=== PATIENT | female | born 1970 | race Caucasian/White ===

== ENCOUNTER → 2023-11-20 17:33 | Outpatient (REF) | payer OTHER, SELFPAY | LOC: MRI 17:33 | PROVIDERS: ATTENDING PHYSICIAN Nurse Practitioner Adult Health | DX: G44.89 Other headache syndrome (principal); R42 Dizziness and giddiness; R26.89 Other abnormalities of gait and mobility | CPT/HCPCS: 70553; A9575 ==

== ENCOUNTER → 2023-11-27 10:34 | Outpatient (REF) | payer OTHER, SELFPAY | LOC: WDC 10:34 | PROVIDERS: ATTENDING PHYSICIAN Nurse Practitioner Adult Health | DX: Z12.31 Encounter for screening mammogram for malignant neoplasm of breast (principal) | CPT/HCPCS: 77063; 77067 ==